=== PATIENT | male | born 1935 | race Caucasian/White ===

== ENCOUNTER 2019-03-21 05:41 | Observation (INO) | payer BC, MEDICARE ==
[~2019-03-21] VITALS: Ht 182.9 cm; Wt 75.7 kg
[2019-03-21] MEDS ORDERED: KETOROLAC 60 MG/2 ML ONE (06:15)
[2019-03-21] MEDS ORDERED: morphine SULFATE/PF 1 MG/ML, 10ML ONE (06:16)
[2019-03-21] MEDS ORDERED: ROPIvacaine/PF 0.2%, 20 ML ONE (06:16)
[2019-03-21] MEDS ORDERED: SODIUM CHLORIDE 0.9% 50 ML ONE (06:16)
[2019-03-21] MEDS ORDERED: EPINEPHRINE 1 MG/ML, 1ML ONE (06:16)
[2019-03-21] MEDS ORDERED: TRANEXAMIC ACID 100 MG/ML, 10ML ONE (06:17)
[2019-03-21] MEDS ORDERED: LACTATED RINGERS 1,000 ML IV SCH (06:31)
[2019-03-21 06:33] VITALS: BP 137/69
[2019-03-21] MEDS ORDERED: MIDAZOLAM 1 MG/ML, 2ML ONE (06:38)
[2019-03-21] MEDS ORDERED: FENTANYL PF 250 MCG/5ML ONE (06:38)
[2019-03-21] MEDS ORDERED: LEVO25TA4 PO (06:40)
[2019-03-21] MEDS ORDERED: METF500T17 PO (06:40)
[2019-03-21] MEDS ORDERED: ATOR40TA78 PO (06:40)
[2019-03-21] MEDS ORDERED: OXYB5TAB10 PO (06:40)
[2019-03-21] MEDS ORDERED: RIVA15TA PO (06:40)
[2019-03-21] MEDS ORDERED: METO50TA82 PO (06:40)
[2019-03-21] MEDS ORDERED: GABAPENTIN 300 MG CAPSULE ONE (06:45)
[2019-03-21] MEDS ORDERED: ACETAMINOPHEN 500 MG TABLET ONE (06:45)
[2019-03-21] MEDS ORDERED: GABAPENTIN 300 MG CAPSULE PO ONE (07:00)
[2019-03-21] MEDS ORDERED: ACETAMINOPHEN 500 MG TABLET PO ONE (07:00)
[2019-03-21] MEDS ORDERED: PHENYLEPHRINE 10 MG/ML ONE (07:05)
[2019-03-21] MEDS ORDERED: ONDANSETRON 2MG/ML, 2ML ONE (07:56)
[2019-03-21] MEDS ORDERED: DEXAMETHASONE 4 MG/ML, 1ML ONE (07:56)
[2019-03-21] MEDS ORDERED: CEFAZOLIN 1,000 MG ONE ×2 (07:56)
[2019-03-21] MEDS ORDERED: LIDOCAINE-MPF 2% ,5ML ONE (07:56)
[2019-03-21] MEDS ORDERED: BUPIVACAINE/PF 0.25% ONE (07:56)
[2019-03-21] MEDS ORDERED: PROPOFOL 10 MG/ML, 20ML ONE (07:56)
[2019-03-21] MEDS ORDERED: METOPROLOL 1 MG/ML, 5ML IV PRN (08:00)
[2019-03-21] MEDS ORDERED: ALBUTEROL/IPRATROPIUM 2.5MG/0.5MG, 3 ML NPPB PRN (08:00)
[2019-03-21] MEDS ORDERED: OXYcodone 5 MG/5 ML ORAL.SOL UDC PO PRN (08:00)
[2019-03-21] MEDS ORDERED: FENTANYL PF 100 MCG/2ML IV PRN (08:00)
[2019-03-21] MEDS ORDERED: hydrALAzine 20 MG/ML, 1ML IV PRN (08:00)
[2019-03-21] MEDS ORDERED: BISACODYL 10 MG SUPP PR PRN (09:00)
[2019-03-21] MEDS ORDERED: MAGNESIUM HYDROXIDE 8%, 30ML UDC PO PRN (09:00)
[2019-03-21] MEDS ORDERED: OXYcodone IR 5MG TABLET PO PRN (09:00)
[2019-03-21] MEDS ORDERED: ONDANSETRON 4 MG TABLET PO PRN (09:00)
[2019-03-21] MEDS ORDERED: ALUMINUM/MAG/SIMETHICONE 30 ML UDC PO PRN (09:00)
[2019-03-21 10:15] VITALS: BP 109/56
[2019-03-21] MEDS: DOCUSATE 100 MG CAPSULE PO SCH ×2 (11:29→21:16)
[2019-03-21] MEDS: POTASSIUM CHLORIDE 20 MEQ in D5%-0.45% NACL 1,000 ML IV SCH (11:29)
[2019-03-21] MEDS: ACETAMINOPHEN 325 MG TABLET PO SCH ×3 (11:29→21:16)
[2019-03-21 16:00] VITALS: BP 110/84
[2019-03-21] MEDS: CEFAZOLIN PMX 1GM/50ML 50 ML IVPB SCH (17:30)
[2019-03-21] MEDS: metFORMIN 500 MG TABLET PO SCH (17:30)
[2019-03-21] MEDS: METOPROLOL TARTRATE 25 MG TABLET PO SCH (17:30)
[2019-03-21] MEDS ORDERED: RIVAROXABAN 10 MG TABLET PO SCH (18:00)
[2019-03-21 18:46] VITALS: BP 106/56
[2019-03-21] MEDS ORDERED: ATORVASTATIN 40 MG TABLET PO SCH (21:00)
[2019-03-21 23:44] VITALS: BP 95/51
[2019-03-22] MEDS: ACETAMINOPHEN 325 MG TABLET PO SCH ×3 (01:25→09:23)
[2019-03-22] MEDS: CEFAZOLIN PMX 1GM/50ML 50 ML IVPB SCH (01:25)
[2019-03-22 04:23] VITALS: BP 131/71
[2019-03-22] MEDS: POTASSIUM CHLORIDE 20 MEQ in D5%-0.45% NACL 1,000 ML IV SCH (05:05)
[2019-03-22 05:55] VITALS: BP 106/64
[2019-03-22] MEDS ORDERED: LEVOTHYROXINE 25 MCG TABLET PO SCH (06:00)
[2019-03-22] MEDS: METOPROLOL TARTRATE 25 MG TABLET PO SCH (06:11)
[2019-03-22 06:43] LABS: BASOPHILS # (AUTO) 0.05 x10^3/uL (0-0.1); BASOPHILS % (AUTO) 0 % (0-1); EOSINOPHILS # (AUTO) 0.07 x10^3/uL (0-0.4); EOSINOPHILS % (AUTO) 0 % (1-7); LYMPHOCYTES # (AUTO) 1.65 x10^3/uL (1-3.4); LYMPHOCYTES % (AUTO) 10 % (22-44); MD NO; MEAN CORPUSCULAR HEMOGLOBIN 30.7 pg (27.5-34.5); MEAN CORPUSCULAR HGB CONC 32.9 g/dL (33.2-36.2); MEAN CORPUSCULAR VOLUME 93.1 fL (81-97); MEAN PLATELET VOLUME 9.3 fL (7.4-10.4); MONOCYTES # (AUTO) 1.09 x10^3/uL (0.2-0.8); MONOCYTES % (AUTO) 7 % (2-9); NEUTROPHILS # (AUTO) 12.96 x10^3/uL (1.8-6.8); NEUTROPHILS % (AUTO) 82 % (42-75); PLATELET COUNT 126 x10^3/uL (130-400); RED BLOOD COUNT 4.11 x10^6/uL (4.38-5.82); RED CELL DISTRIBUTION WIDTH 14.1 % (9.4-14.8)
[2019-03-22 07:13] VITALS: BP 100/63
[2019-03-22] MEDS: metFORMIN 500 MG TABLET PO SCH (08:18)
[2019-03-22] MEDS: DOCUSATE 100 MG CAPSULE PO SCH (08:18)
[2019-03-22] MEDS ORDERED: OXYBUTYNIN 5 MG PO SCH (09:00)
[2019-03-22] MEDS ORDERED: DOCU-131 PO (09:31)
[2019-03-22] MEDS ORDERED: OXYC5TAB3 PO (09:32)
[2019-03-22] MEDS ORDERED: ACET-1600 PO (09:33)
== END 2019-03-22 10:37 | disposition home or self-care (01) ==
LOC: OUT 05:41 → ORIP 08:53 → 4NE 10:11 → DCLOUNGE 03-22 10:10
PROVIDERS: ADMIT Orthopaedic Surgery; ATTEND Orthopaedic Surgery
DX: M17.11 Unilateral primary osteoarthritis, right knee (principal); I48.91 Unspecified atrial fibrillation; I11.0 Hypertensive heart disease with heart failure; I50.9 Heart failure, unspecified; E78.5 Hyperlipidemia, unspecified; E11.9 Type 2 diabetes mellitus without complications; Z88.5 Allergy status to narcotic agent; Z79.01 Long term (current) use of anticoagulants; Z79.84 Long term (current) use of oral hypoglycemic drugs; I25.10 Atherosclerotic heart disease of native coronary artery without angina pectoris; Z95.5 Presence of coronary angioplasty implant and graft
CPT/HCPCS: 27447; 36415; 73560; 82962; 85025; 87081; 96365; 96366; 97110; 97161; 97165; C1713; C1776; G0378; J0171; J0690; J1100; J1885; J2250; J2274; J2370; J2405; J2704; J2795; J3010; J3480; J3490; J7120